=== PATIENT | male | born 1955 | race Caucasian/White ===

== ENCOUNTER → 2020-08-03 | Outpatient (CLI) | payer OTHER ==
--- NOTE | 2020-08-04 00:12 | CT ---
EXAMINATION TYPE: CT ChestAbdPelvis wo con DATE OF EXAM: 08/03/2020 COMPARISON: None available. HISTORY: Ventral hernia w/out obstruction or gangrene. CT DLP: 920.80 mGycm. Automated Exposure Control for Dose Reduction was Utilized. TECHNIQUE: CT scan of the thorax, abdomen and pelvis is performed without IV contrast. FINDINGS: LUNGS: There is mild bibasilar atelectasis. Otherwise the lungs are grossly clear, there is no concer kelly parenchymal mass or nodule identified. There is no pleural effusion or pneumothorax seen. The tracheobronchial tree is patent. MEDIASTINUM: There are no greater than 1 cm hilar or mediastinal lymph nodes. No pericardial effusi on is seen. OTHER: No additional significant abnormality is seen. LIVER/GB: No significant abnormality is appreciated. PANCREAS: No significant abnormality is seen. SPLEEN: 3.6 cm simple appearing cystic lesion within the posterior medial aspect of the spleen. ADRENALS: No significant abnormality is seen. KIDNEYS: No bilateral hydronephrosis or nephrolithiasis. There is a 3 cm mildly hyperdense exophytic left renal cystic lesion in the midpole. Additional bilateral simple appearing renal cysts, one in ea ch kidney measuring up to 2.9 cm are also seen. There is a 4.8 x 3.2 cm oval-shaped, hypoattenuating, circumscribed lesion in the right retroperitone al space, adjacent to the adrenal gland and right kidney upper pole. BOWEL: No significant abnormality is seen. GENITAL ORGANS: No acute abnormality seen. Prostatomegaly noted. LYMPH NODES: Otherwise no enlarged abdominal or pelvic lymph nodes. OSSEOUS STRUCTURES: No significant abnormality is seen. Mild to moderate lumbar spondylosis. OTHER: No significant additional abnormality is seen. IMPRESSION: Indeterminate 4.8 cm right retroperitoneal mass adjacent to the kidneys/adrenal gland. Lymphadenopath y or malignancy cannot be excluded. Consider contrast enhanced MRI or PET/CT for further evaluation. Bilateral renal cysts include a mildly complex left renal cyst. Recommend ultrasound correlation or f ollow-up in 6 months to one year. Also nonspecific benign-appearing splenic cyst. Attention on follow-up. No definite abdominal hernia seen. Prostatomegaly.
== END | disposition home or self-care (01) ==
LOC: RADCTMAIN 16:36
PROVIDERS: ATTEND Family Medicine
DX: R19.09 Other intra-abdominal and pelvic swelling, mass and lump (principal); N28.1 Cyst of kidney, acquired; D73.4 Cyst of spleen; N40.0 Benign prostatic hyperplasia without lower urinary tract symptoms
CPT/HCPCS: 71250; 74176

== ENCOUNTER → 2020-09-02 | Outpatient (CLI) | payer OTHER ==
--- NOTE | 2020-09-02 17:49 | PE ---
Nuclear medicine PET/CT HISTORY: Retroperitoneal, renal mass initial, R 19.00 Patient received 9.1 mCi F-18 FDG intravenously delayed scanning was performed from the skull base to the mid thighs. Localization and attenuation correction CT scan was performed. Correlation to CT chest abdomen pelvis 08/03/2020 Chest and neck: There is no evident lung mass. Coronary artery calcifications are present. Aortic ane urysm is noted incidentally. There are coronary artery calcifications. No intraspinal, axillar, or hi lar adenopathy. No supraclavicular or cervical adenopathy. No suspicious hypermetabolic uptake. ABDOMEN: The previously identified cystic lesion involving the medial aspect of the spleen is no long er seen. There is some increased uptake noted at the inferior margin of the posterior aspect of the s pleen, SUV 3. The retroperitoneal mass posterior to the kidney shows cystic Hounsfield measurement. T here is no hypermetabolic uptake. There is no retroperitoneal adenopathy. No ascites. No evident live r mass. There are cystic foci associated with the kidneys bilaterally. Left adrenal gland is mildly p rominent but shows no suspicious uptake. Inguinal hernias are noted. Prostate is enlarged. Thickening of the bladder wall likely due to chronic outlet obstruction. No pelvic adenopathy. Osseous structures show no suspicious uptake. IMPRESSION: Splenic cyst is no longer seen, hypermetabolic uptake at this level may be due to spontan eous rupture, resorption. The abnormality described in prior report in the retroperitoneum does not c learly arise from the kidney but could possibly represent exophytic cyst, shows water density. There is no hypermetabolic uptake, however. Consider follow-up to assess for stability.
== END | disposition home or self-care (01) ==
LOC: RADPETMAIN 11:08
PROVIDERS: ATTEND Family Medicine
DX: R19.00 Intra-abdominal and pelvic swelling, mass and lump, unspecified site (principal)
CPT/HCPCS: 78815; A9552

== ENCOUNTER → 2020-09-14 | Outpatient (CLI) | payer OTHER ==
--- NOTE | 2020-09-14 10:41 | MR ---
EXAMINATION TYPE: MR abdomen wo/w con DATE OF EXAM: 09/14/2020 COMPARISON: 09/02/2020, 08/03/2020 HISTORY: Intra-abdominal mass and lump CONTRAST: Standard multiplanar, multisequence MRI departmental protocol utilizing 9.0 mL intravenous Gadavist g adolinium contrast. FINDINGS: There remains a area of abnormal signal posterior to the right kidney high and T2 imaging and low on T1 imaging measuring 4.8 x 3.2 cm unchanged in size. No internal enhancement. There are multiple simple appearing cyst within the kidneys bilaterally. Stable thickening of the left adrenal gland and normal morphology of the right adrenal gland. No gallstones. Liver demonstrates multiple subcentimeter simple appearing cysts. There is a tiny 5 mm or less cyst involving the left kidney and there is an area of reduced signal on T2 imaging likely related to calcification in the posterior margin of the spleen and likely benign. Pancreas has a normal appearance. Aorta of normal caliber. Bowel gas pattern nonspecific. Hypertrophic and degenerative change of the s pine. No pathologic adenopathy. IMPRESSION: 1. Stable retroperitoneal mass measuring 4.8 x 3.2 cm on the right unchanged in size relative to the prior exam. No internal enhancement. Findings most likely related to a cyst signal characteristics mo st compatible with fluid. 2. Additional chronic findings including suspected bilateral simple renal cysts and hepatic cysts.
== END | disposition home or self-care (01) ==
LOC: RADMRIMAIN 08:34
PROVIDERS: ATTEND Surgery Plastic and Reconstructive Surgery
DX: R19.09 Other intra-abdominal and pelvic swelling, mass and lump (principal); R19.00 Intra-abdominal and pelvic swelling, mass and lump, unspecified site
CPT/HCPCS: 74183; A9585

== ENCOUNTER → 2020-09-15 | Outpatient (CLI) | payer OTHER ==
--- NOTE | 2020-09-15 10:45 | MR ---
MR pelvis with and without contrast HISTORY: Ventral hernia, mass, pelvic swelling Multiplanar multisequence and postcontrast images obtained through the pelvis following 9 cc Gadavist IV. Correlation MR abdomen 09/14/2020, CT 08/03/2020, PET/CT 09/02/2020 Left groin shows hernia as noted on CT containing fat. T2 bright focus at the lower pole of the right kidney is consistent with cyst as noted on CT, cystic focus also present in exophytic location in th e lateral aspect of the left kidney. The prostate is enlarged. There is an inferior impression on the urinary bladder following contrast administration.. Degenerative disc changes are noted incidentally in visualized spine. No ascites. Bone marrow signal is maintained. Facet arthropathy noted in the lo wer lumbar spine. There is no pelvic adenopathy. IMPRESSION: Prostatic enlargement with extension to cause an inferior impression on the urinary bladd er, consider correlation with PSA. Hernia containing fat noted in the left groin.
== END | disposition home or self-care (01) ==
LOC: RADMRIMAIN 08:35
PROVIDERS: ATTEND Surgery Plastic and Reconstructive Surgery
DX: N40.0 Benign prostatic hyperplasia without lower urinary tract symptoms (principal); K43.9 Ventral hernia without obstruction or gangrene
CPT/HCPCS: 72197; A9585

== ENCOUNTER → 2021-03-15 | Outpatient (CLI) | payer OTHER ==
--- NOTE | 2021-03-16 06:03 | MR ---
EXAMINATION TYPE: MR abdomen wo/w con DATE OF EXAM: 03/15/2021 COMPARISON: HISTORY: Tonsil Ca; Abnormal radiologic finding CONTRAST: Standard multiplanar, multisequence MRI departmental protocol utilizing 9 mL intravenous Gadavist anam olinium contrast. Liver has normal size. Gallbladder appears normal. There are small cysts in the left lobe of the live r that measure 1 cm. The spleen is intact. I see no evidence of pancreatic mass. Pancreatic duct appe ars normal. Stomach is intact. There are multiple bilateral renal cortical cysts. These measure up to 5 cm. There is no hydronephrosis. There is no evidence of retroperitoneal adenopathy. There is no ad renal mass. There is no ascites. There is no sign of a bowel obstruction. There is no evidence of ple ural effusion. The lumbar spine and lower thoracic spine appear intact. Contrast images show normal enhancement of the portal venous system. There is normal enhancement of t he inferior vena cava. There is no pathologic renal enhancement. IMPRESSION: Bilateral multiple renal simple cortical cysts. No evidence of solid renal mass. No renal obstruction . Otherwise negative exam.
== END | disposition home or self-care (01) ==
LOC: RADMRIMAIN 10:31
PROVIDERS: ATTEND Internal Medicine Hematology & Oncology
DX: C09.9 Malignant neoplasm of tonsil, unspecified (principal); N28.1 Cyst of kidney, acquired
CPT/HCPCS: 74183; A9585

== ENCOUNTER → 2022-07-17 | Outpatient (CLI) | payer OTHER ==
--- NOTE | 2022-07-17 12:00 | US ---
EXAMINATION TYPE: US carotid duplex BILAT DATE OF EXAM: 07/17/2022 COMPARISON: NONE CLINICAL HISTORY: Left carotid bruit TECHNIQUE: Carotid duplex ultrasound examination. Indirect Doppler criteria was utilized. FINDINGS: EXAM MEASUREMENTS: RIGHT: Peak Systolic Velocity (PSV) cm/sec ----- Right CCA: 97.9 ----- Right ICA: 94.6 ----- Right ECA: 98.1 ICA/CCA ratio: 1.0 RIGHT: End Diastole cm/sec ----- Right CCA: 33.3 ----- Right ICA: 34.0 ----- Right ECA: 17.6 LEFT: Peak Systolic Velocity (PSV) cm/sec ----- Left CCA: 40.3 ----- Left ICA: -- ----- Left ECA: 204.3 ICA/CCA ratio: -- LEFT: End Diastole cm/sec ----- Left CCA: 11.1 ----- Left ICA: -- ----- Left ECA: 7.5 VERTEBRALS (direction of flow): Right Vertebral: Antegrade Left Vertebral: Antegrade LACING OPERATOR NOTES: Completely occluded left ICA. Decreased velocity in left CCA. Significant stenos is visualized in left ECA. IMPRESSION: Occlusion left ICA. Criteria for Assigning % of Stenosis / Diameter reduction (Estimation based on the indirect measurements of the internal carotid artery velocities (ICA PSV). 1. Normal (no stenosis)=ICA PSV < 125 cm/s: ratio < 2.0: ICA EDV<40 cm/s. 2. Less than 50% stenosis=ICA PSV < 125 cm/s: ratio < 2.0: ICA EDV<40 cm/s. 3. 50 to 69% stenosis=ICA PSV of 125 to 230 cm/s: ration 2.0 ? 4.0: ICA EDV 40-100 cm/s. 4. Greater than 70% stenosis to near occlusion= ICA PSV > 230 cm/s: ratio > 4.0: ICA EDV > 100 cm/s. 5. Near occlusion= ICA PSV velocities may be low or undetectable: variable ratio and ICA EDV. 6. Total occlusion=unable to detect flow.
== END | disposition home or self-care (01) ==
LOC: RADUSWWP 10:31
PROVIDERS: ATTEND Physician Assistant
DX: I65.22 Occlusion and stenosis of left carotid artery (principal)
CPT/HCPCS: 93880

== ENCOUNTER → 2022-08-23 | Outpatient (CLI) | payer OTHER ==
--- NOTE | 2022-08-23 09:40 | CT ---
EXAMINATION TYPE: CT angio neck CT DLP: 401 mGycm, Automated exposure control for dose reduction was used. DATE OF EXAM: 08/23/2022 8:28 AM COMPARISON: Ultrasound carotids 07/17/2022. CLINICAL INDICATION:Male, 66 years old with history of I65.22; TECHNIQUE: Axially acquired helical CT angiogram of the neck was obtained with contrast. Axial images are supplemented with 3D reconstructions which were post-processed at an independent workstation. NA SCET criteria used. Contrast used: 65 cc of [id number] Oral contrast used: None. FINDINGS: CTA NECK: Right Carotid System: The common carotid artery and external carotid artery are patent. The carotid bifurcation demonstrate s no evidence of hemodynamically significant stenosis. The remaining portions of the internal carotid artery demonstrate normal size without significant narrowing. Left Carotid System: The common carotid artery and external carotid artery are patent. The left internal carotid artery is occluded extending from its origin to the intracranial portion. Vertebral arteries are patent without evidence hemodynamically significant stenosis. There is a three-vessel aortic arch. The origins of the great vessels are patent. No evidence of hemo dynamically significant stenosis. Mild centrilobular emphysema changes in the lungs. Mild multilevel disc degeneration changes througho ut the spine. IMPRESSION: 1. Occlusion of the left internal carotid artery extending from its origin to the intracranial porti on. 2. No evidence of dissection of the cervical right internal carotid arteries or vertebral arteries o r any evidence of significant stenosis at the right carotid bifurcation. 3. No evidence of intracranial high-grade stenosis or intracranial aneurysm.
== END | disposition home or self-care (01) ==
LOC: RADCTMAIN 07:31
PROVIDERS: ATTEND Physician Assistant
DX: I65.22 Occlusion and stenosis of left carotid artery (principal)
CPT/HCPCS: 70498; Q9967

== ENCOUNTER → 2023-06-12 | Outpatient (CLI) | payer OTHER ==
--- NOTE | 2023-06-12 11:52 | US ---
EXAMINATION TYPE: US carotid duplex BILAT DATE OF EXAM: 06/12/2023 COMPARISON: 07/17/2022 CLINICAL INDICATION: Male, 67 years old with history of I65.22 OCCLUSION AND STENOSIS OF LEFT CAROTID AUGUSTINE; Patient on cholesterol medication. History of lt ICA occlusion TECHNIQUE: Carotid duplex ultrasound examination. Indirect Doppler criteria was utilized. FINDINGS: EXAM MEASUREMENTS: RIGHT: Peak Systolic Velocity (PSV) cm/sec ----- Right CCA: 104.0 ----- Right ICA: 159.3 ----- Right ECA: 120.5 ICA/CCA ratio: 1.5 RIGHT: End Diastole cm/sec ----- Right CCA: 38.7 ----- Right ICA: 52.7 ----- Right ECA: 31.7 LEFT: Peak Systolic Velocity (PSV) cm/sec ----- Left CCA: 0.0 ----- Left ICA: 0.0 ----- Left ECA: 38.2 ICA/CCA ratio: LEFT: End Diastole cm/sec ----- Left CCA: -- ----- Left ICA: -- ----- Left ECA: 17.5 VERTEBRALS (direction of flow): Right Vertebral: Antegrade Left Vertebral: Antegrade Rhythm: abnormal noted on rt prox CCA HUMAN RESOURCES ASSOCIATE NOTES: Elevated velocities noted rt prox ICA: Soft plaque noted throughout left CCA/ICA/E CA. Minimal flow noted left ECA otherwise completely occluded throughout IMPRESSION: 1. Measurements suggest moderate (50-69%) proximal right ICA stenosis. 2. The left carotid system is occluded throughout. The common carotid artery also appears occluded no w compared to 07/17/2022. Criteria for Assigning % of Stenosis / Diameter reduction (Estimation based on the indirect measurements of the internal carotid artery velocities (ICA PSV). 1. Normal (no stenosis)=ICA PSV < 125 cm/s: ratio < 2.0: ICA EDV<40 cm/s. 2. Less than 50% stenosis=ICA PSV < 125 cm/s: ratio < 2.0: ICA EDV<40 cm/s. 3. 50 to 69% stenosis=ICA PSV of 125 to 230 cm/s: ration 2.0 ? 4.0: ICA EDV 40-100 cm/s. 4. Greater than 70% stenosis to near occlusion= ICA PSV > 230 cm/s: ratio > 4.0: ICA EDV > 100 cm/s. 5. Near occlusion= ICA PSV velocities may be low or undetectable: variable ratio and ICA EDV. 6. Total occlusion=unable to detect flow.
== END | disposition home or self-care (01) ==
LOC: RADUSWWP 09:14
DX: I65.23 Occlusion and stenosis of bilateral carotid arteries (principal); Z79.899 Other long term (current) drug therapy
CPT/HCPCS: 93880

== ENCOUNTER → 2024-07-30 | Outpatient (CLI) | payer OTHER ==
--- NOTE | 2024-07-31 18:26 | US ---
EXAMINATION TYPE: US carotid duplex BILAT DATE OF EXAM: 07/30/2024 COMPARISON: 06/12/2023 CLINICAL INDICATION: Male, 68 years old with history of I65.23Carotid artery stenosis; Additional History: I65.- Occlusion/stenosis of specified precerebral artery, specified laterality TECHNIQUE: Grayscale, color Doppler and spectral Doppler evaluation of the bilateral carotid systems and vertebral arteries. Indirect Doppler criteria was utilized. FINDINGS: EXAM MEASUREMENTS: RIGHT: Peak Systolic Velocity (PSV) cm/sec ----- Right CCA: 98.2 ----- Right ICA: 162.2 ----- Right ECA: 99.1 ICA/CCA ratio: 1.7 RIGHT: End Diastole cm/sec ----- Right CCA: 31.4 ----- Right ICA: 65.6 ----- Right ECA: 14.4 LEFT: Peak Systolic Velocity (PSV) cm/sec ----- Left CCA: occluded ----- Left ICA: occluded ----- Left ECA: occluded ICA/CCA ratio: occluded LEFT: End Diastole cm/sec ----- Left CCA: occluded ----- Left ICA: occluded ----- Left ECA: occluded VERTEBRALS (direction of flow): Right Vertebral: Antegrade Left Vertebral: Antegrade Rhythm: Normal DIRECTOR OF CAPITAL GIVING NOTES: Left CCA,ICA and ECA totally occluded. No flow visualized. Color Doppler imaging shows patency with blood flow throughout the carotid artery. Spectral waveforms are within normal limits. IMPRESSION: Right: 50-69% stenosis of the carotid bifurcation. Left: Left CCA,ICA and ECA totally occluded. No flow visualized. Similar to 06/12/2023 Criteria for Assigning % of Stenosis / Diameter reduction (Estimation based on the indirect measurements of the internal carotid artery velocities (ICA PSV). 1. Normal (no stenosis)=ICA PSV < 125 cm/s: ratio < 2.0: ICA EDV<40 cm/s. 2. Less than 50% stenosis=ICA PSV < 125 cm/s: ratio < 2.0: ICA EDV<40 cm/s. 3. 50 to 69% stenosis=ICA PSV of 125 to 230 cm/s: ration 2.0 ? 4.0: ICA EDV 40-100 cm/s. 4. Greater than 70% stenosis to near occlusion= ICA PSV > 230 cm/s: ratio > 4.0: ICA EDV > 100 cm/s. 5. Near occlusion= ICA PSV velocities may be low or undetectable: variable ratio and ICA EDV. 6. Total occlusion=unable to detect flow. [facility], , 07/31/2024 6:24 PM
== END | disposition home or self-care (01) ==
LOC: RADUSWWP 14:55
PROVIDERS: ATTEND Family Medicine
DX: I65.23 Occlusion and stenosis of bilateral carotid arteries (principal)
CPT/HCPCS: 93880

== ENCOUNTER 2024-08-16 10:26 | Observation (INO) | payer OTHER, MEDICARE ==
[2024-08-16] MEDS: SODIUM CHLORIDE 0.9% 1,000 ML IV STA (11:18)
[2024-08-16] MEDS: hydrALAZINE HCL 20 MG/ML 1 ML VIAL IVP STA ×2 (11:20→12:26)
[2024-08-16] MEDS: ASPIRIN 81 MG PO STA (11:20)
[2024-08-16 11:46] LABS: Partial Thromboplastin Time 23.3 sec (22.0-30.0); Prothrombin Time 10.7 sec (10.0-12.5)
[2024-08-16 11:52] LABS: HCT 47.5 % (39.0-53.0); HGB 16.1 gm/dL (13.0-17.5); MCV 94.3 fL (80.0-100.0); Mean Platelet Volume 7.9; Platelet Count 194 k/uL (150-450); RBC 5.04 m/uL (4.30-5.90); RDW 12.8 % (11.5-15.5); WBC 6.8 k/uL (3.8-10.6)
[2024-08-16 11:55] LABS: ALT 17 U/L (4-49); AST 23 U/L (17-59); African American GFR (CKD) >90 (>60 ml/min/1.73 sqM); Albumin 4.7 g/dL (3.5-5.0); Alkaline Phosphatase 67 U/L (38-126); Anion Gap 7 mmol/L; Blood Urea Nitrogen 17 mg/dL (9-20); Carbon Dioxide 31 mmol/L (22-30); Chloride 99 mmol/L (98-107); Glucose 113 mg/dL (74-99); Magnesium 2.2 mg/dL (1.6-2.3); Non-African American GFR(CKD) 86 (>60 ml/min/1.73 sqM); Potassium 4.8 mmol/L (3.5-5.1); Sodium 137 mmol/L (137-145); Total Bilirubin 1.1 mg/dL (0.2-1.3); Total Protein 7.6 g/dL (6.3-8.2)
[2024-08-16 12:09] LABS: Band Neutrophils % 3 %; Monocytes # (M) 0.48 k/uL (0-1.0); Neutrophils % (M) 62 %; Nucleated Red Blood Cells 0 /100 WBC (0-0); Total Cells Counted 100
[2024-08-16] MEDS ORDERED: hydrALAZINE HCL 20 MG/ML 1 ML VIAL IVP STA (12:14)
[2024-08-16] MEDS ORDERED: amLODIPine 5 MG TAB PO STA (12:14)
--- NOTE | 2024-08-16 12:36 | ED ---
General Adult HPI - General Chief complaint: Dizziness Stated complaint: chest pain dizzy Time Seen by Provider: 08/16/24 10:55 Source: patient, family, RN notes reviewed, old records reviewed Mode of arrival: wheelchair Limitations: no limitations - History of Present Illness Initial comments: Patient is a 68-year-old male who presents emergency department with multiple complaints. Has a history of acute on chronic chest pain/palpitations in addition is having some left arm discomfort. Also feels lightheaded. Has been having his blood pressure watched outpatient by the [facility] however patient took his blood pressure at home today and it was elevated. Denies any history of cardiac stents. Denies any shortness of breath. States he chronically gets some left-sided chest discomfort. Denies any nausea, vomiting, diaphoresis. De nies any abdominal pain. Has a history of carotid issues and is being evaluated outpatient for this. Presents for further evaluation at this time. Denies headache. Is not on blood thinners. Denies any weakness or numbness.Denies current chest pain. States the arm discomfort is almost resolved. States arm discomfort is worse with movements. - Related Data Home Medications Medication Instructions Recorded Confirmed Ascorbic Acid [Vitamin C] 500 mg PO DAILY 08/16/24 08/16/24 Cholecalciferol [Vitamin D3 (125 125 mcg PO DAILY 08/16/24 08/16/24 Mcg = 5000 Iu)] Glucosam/Aakash-Msm1/C/Virgilio/Bosw 1 tab PO DAILY 08/16/24 08/16/24 [Glucosamine-Chondroitin Tablet] Krill/[place]-3/Dha/Epa/Lipids 1 cap PO BID 08/16/24 08/16/24 [Krill Oil 350 mg Softgel] Levothyroxine Sodium [Synthroid] 125 mcg PO DAILY 08/16/24 08/16/24 Methylsulfonylmethane [MSM] 2,000 mg PO DAILY 08/16/24 08/16/24 Pravastatin Sodium [Pravachol] 40 mg PO DAILY 08/16/24 08/16/24 Allergies Allergy/AdvReac Type Severity Reaction Status Date / Time No Known Allergies Allergy Verified 08/16/24 12:54 Review of Systems ROS Statement: Those systems with pertinent positive or pertinent negative responses have been documented in the HPI. Review of Systems: CONST: Denies fever EYES: Denies blurry vision ENT: Denies nasal congestion C/V: Denies Chest pain RESP: Denies shortness of breath GI: Denies abdominal pain : Denies dysuria SKIN: Denies rash. MSK: Denies joint pain. NEURO: Denies headache ROS Other: All systems not noted in ROS Statement are negative. Past Medical History Past Medical History: Cancer, Thyroid Disorder Additional Past Medical History / Comment(s): Hep C with treatment. Rheumatic fever History of Any Multi-Drug Resistant Organisms: None Reported Past Surgical History: Hernia Repair, Tonsillectomy Additional Past Surgical History / Comment(s): thyroidectomy Past Psychological History: No Psychological Hx Reported Smoking Status: Former smoker Past Alcohol Use History: Occasional Past Drug Use History: None Reported General Exam - General Exam Comments Initial Comments: General: Appears in no acute distress. HEAD: Normal with no signs of head trauma. EYES: PERRLA, EOMI, conjunctiva normal, no discharge. ENT: Hearing grossly intact, normal oropharynx. RESPIRATORY: Clear breath sounds bilaterally. No wheezes, rales, or rhonchi. C/V: Regular rate and rhythm. S1 and S2 auscultated, no edema, peripheral pulses 2+ and intact throughout ABD: Abd is soft, nontender, nondistended EXT: Normal range of motion, no obvious deformity. Chest pain is not reproducible on palpation. Left posterior bicep muscle is tender on palpation. This is the area that patient is complaining of pain. SKIN: No rashes or lesions observed on exposed skin. NEURO: Alert and oriented x 4. Cranial nerves II-XII intact. No focal sensory or strength deficits. NIH of 0. Cerebellar function is within normal limits. Limitations: no limitations Course Vital Signs 08/16/24 08/16/24 08/16/24 10:28 11:17 11:33 Temperature 97.9 F Pulse Rate 83 80 78 Respiratory 20 18 18 Rate Blood Pressure 202/109 181/107 186/99 O2 Sat by Pulse 98 96 97 Oximetry 08/16/24 08/16/24 08/16/24 12:00 12:26 14:42 Temperature 98 F Pulse Rate 83 Respiratory 18 Rate Blood Pressure 177/102 189/103 158/93 O2 Sat by Pulse 98 Oximetry Medical Decision Making - Medical Decision Making Was pt. sent in by a medical professional or institution (, PA, [employer] W[employer] OPERATOR, urgent care, hospital, or long term...) When possible be specific @ -No Did you speak to anyone other than the patient for history (EMS, parent, family, police, friend...)? What history was obtained from this source @ -No Did you review nursing and triage notes (agree or disagree)? Why? @ -I reviewed and agree with nursing and triage notes Were old charts reviewed (outside hosp., previous admission, EMS record, old EKG, old radiological studies, urgent care reports/EKG's, long term records)? Report findings @ -Old charts reviewed including ultrasound from July 2024 which does show 50 to 69% obstruction of the right carotid arteries and 100% obstruction of the left carotid arteries. Left carotid artery findings are chronic. Differential Diagnosis (chest pain, altered mental status, abdominal pain women, abdominal pain men, vaginal bleeding, weakness, fever, dyspnea, syncope, headache, dizziness, GI bleed, back pain, seizure, CVA, palpatations, mental health, musculoskeletal)? @ -Differential Chest Pain: Stable Angina, Unstable Angina, STEMI, NSTEMI Aortic Dissection, Pneumothorax, Musculoskeletal, Esophageal Spasm GERD, Cholecystitis, Pancreatitis, Zoster, this is not meant to be an all-inclusive list. EKG interpreted by me (3pts min.). @ -As above X-rays interpreted by me (1pt min.). @ -Chest x-ray reveals no obvious acute cardiopulmonary process. CT interpreted by me (1pt min.). @ -None done U/S interpreted by me (1pt. min.). @ -None done What testing was considered but not performed or refused? (CT, X-rays, U/S, labs)? Why? @ -None What meds were considered but not given or refused? Why? @ -None Did you discuss the management of the patient with other professionals (professionals i.e. DrHilaria, PA, [employer] OPERATOR, lab, RT, psych nurse, social professionals, white sourer, teacher, bank officer, case finishing machine adjuster)? Give summary @ -Discussed management with Dr. Morgan of [facility] who accepted the patient. Also discussed the patient with Dr. Kelly of [facility] who presented bedside to evaluate the patient. Was smoking cessation discussed for >3mins.? @ -No Was critical care preformed (if so, how long)? @ -No Were there social determinants of health that impacted care today? How? (Homelessness, low income, unemployed, alcoholism, drug addiction, transportation, low edu. Level, literacy, decrease access to med. care, halfway, rehab)? @ -No Was there de-escalation of care discussed even if they declined (Discuss DNR or withdrawal of care, Hospice)? DNR status @ -No What co-morbidities impacted this encounter? (DM, HTN, Smoking, COPD, CAD, Cancer, CVA, ARF, Chemo, Hep., AIDS, mental health diagnosis, sleep apnea, morbid obesity)? @ -Carotid artery stenosis bilaterally Was patient admitted / discharged? Hospital course, mention meds given and route, prescriptions, significant lab abnormalities, going to OR and other pertinent info. @ -Based on the patient's presentation and physical exam, presents to the emergency department complaining of chest pain. The way he describes it is that he had chest pain with left arm pain as well as some lightheadedness. However upon further discussion, it does seem like the chest pain is chronic. The arm involvement and lightheadedness is not typical. We will obtain cardiac workup. Patient is hypertensive with systolics over 200. Patient will be administered a dose of IV hydralazine, low doses he is not typically on antihypertensives. He is also given aspirin as well as a 1 L fluid bolus. Patient was in agreement this plan. EKG shows no signs of acute ischemia. Chest x-ray unremarkable. Laboratory studies remarkable for undetectable troponin. On reevaluation, patient states he is feeling improved. Blood pressures remains elevated. Discussed options of discharge versus admission and with the chest pain presentation, we will admit to cardiac observation. This also allows us to come up with a plan to control his hypertension, concerning he does have a history of carotid artery stenosis. Difficult for close follow-up. Patient was in agreement this plan. Patient received a total of 10 mg IV push hydralazine here in the department. Considered initiating Norvasc however we will defer at this time to the admitting team. I discussed the case with Dr. Morgan who accepted the admission. Cardiology consulted. Undiagnosed new problem with uncertain prognosis? @ -No Drug Therapy requiring intensive monitoring for toxicity (Heparin, Nitro, Insulin, Cardizem)? @ -No Were any procedures done? @ -No Diagnosis/symptom? @ -Chest pain, uncontrolled hypertension Acute, or Chronic, or Acute on Chronic? @ -Acute Uncomplicated (without systemic symptoms) or Complicated (systemic symptoms)? @ -Complicated Side effects of treatment? @ -No Exacerbation, Progression, or Severe Exacerbation? @ -No Poses a threat to life or bodily function? How? (Chest pain, [place], [place], pneumonia, PE, COPD, DKA, ARF, appy, cholecystitis, CVA, Diverticulitis, Homicidal, Suicidal, threat to staff... and all critical care pts) @ -Potentially, yes - Lab Data Result diagrams: 08/16/24 11:32 08/16/24 11:32 Lab Results 08/16/24 08/16/24 08/16/24 Range/Units 11:32 11:32 11:32 WBC 6.8 (3.8-10.6) k/uL RBC 5.04 (4.30-5.90) m/uL Hgb 16.1 (13.0-17.5) gm/dL Hct 47.5 (39.0-53.0) % MCV 94.3 (80.0-100.0) fL MCH 32.0 (25.0-35.0) pg MCHC 34.0 (31.0-37.0) g/dL RDW 12.8 (11.5-15.5) % Plt Count 194 (150-450) k/uL MPV 7.9 Neutrophils % (Manual) 62 % Band Neuts % (Manual) 3 % Lymphocytes % (Manual) 25 % Monocytes % (Manual) 7 % Eosinophils % (Manual) 3 % Neutrophils # [employer] OPERATOR Neutrophils # (Manual) 4.40 (1.3-7.7) k/uL Lymphocytes # (Manual) 1.70 (1.0-4.8) k/uL Monocytes # (Manual) 0.48 (0-1.0) k/uL Eosinophils # (Manual) 0.20 (0-0.7) k/uL Nucleated RBCs 0 (0-0) /100 WBC Manual Slide Review Performed PT 10.7 (10.0-12.5) sec INR 1.0 (<1.2) APTT 23.3 (22.0-30.0) sec Sodium 137 (137-145) mmol/L Potassium 4.8 (3.5-5.1) mmol/L Chloride 99 (98-107) mmol/L Carbon Dioxide 31 H (22-30) mmol/L Anion Gap 7 mmol/L BUN 17 (9-20) mg/dL Creatinine 0.90 (0.66-1.25) mg/dL Est GFR (CKD-EPI)AfAm >90 (>60 ml/min/1.73 sqM) Est GFR (CKD-EPI)NonAf 86 (>60 ml/min/1.73 sqM) Glucose 113 H (74-99) mg/dL Calcium 10.0 (8.4-10.2) mg/dL Magnesium 2.2 (1.6-2.3) mg/dL Total Bilirubin 1.1 (0.2-1.3) mg/dL AST 23 (17-59) U/L ALT 17 (4-49) U/L Alkaline Phosphatase 67 (38-126) U/L Troponin I (0.000-0.034) ng/mL Total Protein 7.6 (6.3-8.2) g/dL Albumin 4.7 (3.5-5.0) g/dL 08/16/24 Range/Units 11:32 WBC (3.8-10.6) k/uL RBC (4.30-5.90) m/uL Hgb (13.0-17.5) gm/dL Hct (39.0-53.0) % MCV (80.0-100.0) fL MCH (25.0-35.0) pg MCHC (31.0-37.0) g/dL RDW (11.5-15.5) % Plt Count (150-450) k/uL MPV Neutrophils % (Manual) % Band Neuts % (Manual) % Lymphocytes % (Manual) % Monocytes % (Manual) % Eosinophils % (Manual) % Neutrophils # Neutrophils # (Manual) (1.3-7.7) k/uL Lymphocytes # (Manual) (1.0-4.8) k/uL Monocytes # (Manual) (0-1.0) k/uL Eosinophils # (Manual) (0-0.7) k/uL Nucleated RBCs (0-0) /100 WBC Manual Slide Review PT (10.0-12.5) sec INR (<1.2) APTT (22.0-30.0) sec Sodium (137-145) mmol/L Potassium (3.5-5.1) mmol/L Chloride (98-107) mmol/L Carbon Dioxide (22-30) mmol/L Anion Gap mmol/L BUN (9-20) mg/dL Creatinine (0.66-1.25) mg/dL Est GFR (CKD-EPI)AfAm (>60 ml/min/1.73 sqM) Est GFR (CKD-EPI)NonAf (>60 ml/min/1.73 sqM) Glucose (74-99) mg/dL Calcium (8.4-10.2) mg/dL Magnesium (1.6-2.3) mg/dL Total Bilirubin (0.2-1.3) mg/dL AST (17-59) U/L ALT (4-49) U/L Alkaline Phosphatase (38-126) U/L Troponin I <0.012 (0.000-0.034) ng/mL Total Protein (6.3-8.2) g/dL Albumin (3.5-5.0) g/dL - EKG Data -: EKG Interpreted by Me EKG Comments: 12-lead Electrocardiogram Interpretation Note EKG was reviewed and interpreted by myself. 12-lead ECG performed at 1034 is interpreted by me as revealing normal sinus rhythm at a rate of 77 beats per minute. [place] is normal. MS interval is 157 ms, QRS duration is 73 ms, QTc is 424 ms.. There were no ST or T wave abnormalities to suggest myocardial ischemia or injury. R wave progression across the precordium was satisfactory. By my interpretation this EKG is non-diagnostic for acute ischemia. Disposition Clinical Impression: Chest pain, Uncontrolled hypertension Disposition: ADMITTED IP TO THIS HOSP Condition: Stable Referrals: [facility],Clinic [Primary Care Provider] - 1-2 days Time of Disposition: 13:35
--- NOTE | 2024-08-16 13:18 | XR ---
EXAMINATION TYPE: XR chest 1V DATE OF EXAM: 08/16/2024 12:54 PM COMPARISON: None. CLINICAL INDICATION: Fall, difficulty walking, difficult urination, pain, 68 years old with history o f Chest Pain, TECHNIQUE: XR chest 1V view(s) obtained. FINDINGS: The heart size is normal. The pulmonary vasculature is normal. A few linear opacities are at the left lung base and costophrenic angle likely plate atelectasis. Ba gs otherwise appear clear. No suspicious focal consolidations are evident. IMPRESSION: 1. Suggestion of minimal platelike atelectasis left lower lobe. 2. Acute pulmonary process is not otherwise evident. [facility], , 08/16/2024 1:16 PM
[2024-08-16] MEDS ORDERED: NALOXONE 0.4 MG/ML 1 ML VIAL IV PRN (13:53)
[2024-08-16 15:02] LABS: Appearance,Urine Clear (Clear); Bilirubin,Urine Negative (Negative); Blood,Urine Negative (Negative); Color,Urine Colorless; Glucose,Urine (UA) Negative (Negative); Ketones,Urine Negative (Negative); Leukocyte Esterase,Urine Negative (Negative); Nitrite,Urine Negative (Negative); PH, Urine 6.5 (5.0-8.0); Protein,Urine Negative (Negative); Specific Gravity,Urine 1.006 (1.001-1.035); Urobilinogen,Urine <2.0 mg/dL (<2.0)
[2024-08-16] MEDS ORDERED: ONDANSETRON 4 MG/2 ML VIAL IVP PRN (15:09)
--- NOTE | 2024-08-16 15:48 | P.HPIM ---
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 Patient says that this pain started after he was shoveling snow yesterday. Notably, his pain did not occur during shoveling snow, but rather noticed much later in the day. It occurs even at rest and some positions make him feel better. He does not associate this with exertion. He denies association with food. Denies fevers, chills, nausea, vomiting, palpitat ions, dyspnea, abdominal pain, constipation, diarrhea. This patient's history is significant for chronic total occlusion of his left carotid artery and 70% stenosis of his right carotid artery. He is due to follow-up with Dr. Comfort Irwin for possible operative planning. He denies any neurological symptoms such as weakness of his left upper or lower extremity. At the time my evaluation, patient was afebrile, 158/93, heart rate 83, 98% on room air. CBC is unremarkable. Complete metabolic panel showed CO2 of 31, otherwise unremarkable. Troponin was less than 0.012 then trended to less than 0.012 hours. Urinalysis was negative for protein. EKG shows normal sinus rhythm with normal axis, no evidence of left ventricular hypertrophy, no evidence of ischemia. Chest x-ray shows normal-sized heart, no evidence of volume overload. Mediastinum is mildly widened. Case was discussed with the emergency room physician as well as vascular surgery on consult. Patient was admitted for observation for chest pain, hypertensive urgency. All Systems reviewed and pertinent positives and negatives noted in HPI, all other symptoms are negative Gen: In NAD, non-toxic HEENT: normocephalic, atraumatic, hearing acuity is intant, mucous membranes moist, mild bruits present in the right carotid artery CVS: perfusing all extremities well, no pitting edema, regular rate rhythm with no evident murmurs, Respiratory: symmetric chest expansion, no accessory muscle use, clear to auscultation bilaterally GI: soft, NTTP, ND, : no suprapubic tenderness, no CVA tenderness MSK/Derm: no rashes, cyanosis, chest pain and left arm numbness is reproducible to palpation of the lateral flank Neuro: CN II-XII intact, no motor weakness, Psych: cooperative, euthymic mood, judgment and insight is intact Imaging as above Assessment/plan: Chest pain, musculoskeletal -Admit patient observation with telemetry -Cardiology was consulted -Trend troponins -Lipid panel, A1c, TSH -Aspirin 81 mg daily -Continue statin -Hold antihypertensives as below -Echocardiogram is pending Carotid artery stenosis, total occlusion of the left, 70 percent on the right Hypertensive urgency -Discussed with vascular surgery, maintain SBP between 140-160 -Patient is at target at this time without any antihypertensives, we will not initiate at this time -CT angiography of the head and neck -Vascular surgery consult is pending -Agree with aspirin -Neurological checks Hyperlipidemia Diabetes type 2 -Home medications reviewed and reconciled -Initiate Jardiance versus metformin on discharge Patient is full code Past Medical History Past Medical History: Cancer, Thyroid Disorder Additional Past Medical History / Comment(s): Hep C with treatment. Rheumatic fever History of Any Multi-Drug Resistant Organisms: None Reported Past Surgical History: Hernia Repair, Tonsillectomy Additional Past Surgical History / Comment(s): thyroidectomy Past Psychological History: No Psychological Hx Reported Smoking Status: Former smoker Past Alcohol Use History: Occasional Past Drug Use History: None Reported Medications and Allergies Home Medications Medication Instructions Recorded Confirmed Type Ascorbic Acid [Vitamin C] 500 mg PO DAILY 08/16/24 08/16/24 History Cholecalciferol [Vitamin D3 (125 125 mcg PO DAILY 08/16/24 08/16/24 History Mcg = 5000 Iu)] Glucosam/Aakash-Msm1/C/Virgilio/Bosw 1 tab PO DAILY 08/16/24 08/16/24 History [Glucosamine-Chondroitin Tablet] Krill/[place]-3/Dha/Epa/Lipids 1 cap PO BID 08/16/24 08/16/24 History [Krill Oil 350 mg Softgel] Levothyroxine Sodium [Synthroid] 125 mcg PO DAILY 08/16/24 08/16/24 History Methylsulfonylmethane [MSM] 2,000 mg PO DAILY 08/16/24 08/16/24 History Pravastatin Sodium [Pravachol] 40 mg PO DAILY 08/16/24 08/16/24 History Allergies Allergy/AdvReac Type Severity Reaction Status Date / Time No Known Allergies Allergy Verified 08/16/24 12:54 Physical Exam Osteopathic Statement: *. No significant issues noted on an osteopathic structural exam other than those noted in the History and Physical/Consult. Vitals: Vital Signs Temp Pulse Resp BP Pulse Ox 08/16/24 14:42 98 F 83 18 158/93 98 08/16/24 12:26 189/103 08/16/24 12:00 177/102 08/16/24 11:33 78 18 186/99 97 08/16/24 11:17 80 18 181/107 96 08/16/24 10:28 97.9 F 83 20 202/109 98 Intake and Output 08/16/24 08/16/24 08/16/24 06:59 14:59 22:59 Other: Weight 81.647 kg Results CBC & Chem 7: 08/16/24 11:32 08/16/24 11:32 Labs: Abnormal Lab Results - Last 24 Hours (Table) 08/16/24 Range/Units 11:32 Carbon Dioxide 31 H (22-30) mmol/L Glucose 113 H (74-99) mg/dL
--- NOTE | 2024-08-16 17:00 | CT ---
EXAMINATION TYPE: CT head without contrast. CT angio head neck DATE OF EXAM: 08/16/2024 4:15 PM COMPARISON: 08/23/2019. CLINICAL INDICATION: Male, 68 years old with history of carotid stenosis; PHH, hx of carotid stenosis TECHNIQUE: Axially acquired helical CT angiogram of the head and neck was obtained with contrast. Axi al images are supplemented with 3D reconstructions and MIP images which were post-processed at an in dependent workstation. NASCET criteria used. CT head without contrast. Contrast used:65ml mL of Isovue 370 without and with IV Contrast, Oral contrast used: None. CT DLP: 1737.1 mGycm, Automated exposure control for dose reduction was used. FINDINGS: CT head without contrast: Brain: Extra-axial spaces: No abnormal extra-axial fluid collections. Ventricular system: Within normal limits Cerebral parenchyma: No acute intraparenchymal hemorrhage or mass effect. The cordova-white junction is well differentiated. Cerebellum: Unremarkable. Mass effect: No evidence of midline shift. Intracranial vasculature: Atherosclerotic calcifications of the intracranial vessels. Soft tissues: Normal. Calvarium/osseous structures: No depressed skull fracture. Deformity to the nasal bone. Paranasal sinuses and mastoid air cells: Mild scattered paranasal sinus disease. Visualized orbits: Orbital contents are intact. CTA HEAD: No evidence of acute intracranial hemorrhage, mass effect, or midline shift. The ventricles, sulci, a nd cisterns are unremarkable. Vertebral arteries: The vertebral arteries are patent. Vertebral artery dominance: Codominant Basilar artery: The basilar artery is intact. The basilar artery bifurcation is normal. Internal Carotid arteries: Reconstitution of the occlusion in the intracranial portion/cavernous port ion on the left. On the right No evidence for occlusion. The cervical, petrous, cavernous and supracl inoid segments are normal. GIBRAN: Patent with no evidence of aneurysm. ACOM: Present without evidence of aneurysm. MCA: Patent with no evidence of aneurysm. COMPENSATION INTERN: Patent with no evidence of aneurysm. PCOM: Hypoplastic bilaterally. Dural sinuses: Patent. CTA NECK: Right Carotid System: The common carotid artery and external carotid artery are patent. The carotid bifurcation demonstrate s no evidence of hemodynamically significant stenosis. The remaining portions of the internal carotid artery demonstrate normal size without significant narrowing. Left Carotid System: Occlusion of the left common carotid artery just past its bifurcation extending into the [place] with reconstitution. Previously the occlusion started closer to the carotid bifurcation now its near its origin off the aorta. Vertebral arteries are patent without evidence hemodynamically significant stenosis. There is a three-vessel aortic arch. The origins of the great vessels are patent. No evidence of hemo dynamically significant stenosis. Upper thorax: IMPRESSION: 1. Occlusion of the left common carotid artery just past its bifurcation extending near the [place] with reconstitution. Previously the occlusion started closer to the carotid bifurcation now its near its origin. 2. No any evidence of significant stenosis at the right carotid system. 3. No evidence of intracranial high-grade stenosis or intracranial aneurysm. 4. No acute intracranial process. 5. Deformity to the nasal bones correlate for fracture. [facility], , 08/16/2024 4:57 PM
--- NOTE | 2024-08-16 18:45 | US ---
EXAMINATION TYPE: US carotid duplex BILAT DATE OF EXAM: 08/16/2024 COMPARISON: CTa 2024, US 2023 and 2022 CLINICAL INDICATION: Male, 68 years old with history of right carotid stenosis characterization; Righ t carotid stenosis characterization recheck Additional History: .... TECHNIQUE: Grayscale, color Doppler and spectral Doppler evaluation of the bilateral carotid systems and vertebral arteries. Indirect Doppler criteria was utilized. 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 Plaque noted throughout lef t CCA, bulb, and bifurcation. No flow visualized in left CCA or left ICA. Possible minimal flow in le ft ECA. IMPRESSION: 1. No flow evident within the left common or left internal carotid artery. There may be flow within t he left external carotid artery, possibly from collateral flow. 2. Atheromatous plaquing right internal carotid artery with moderate narrowing between 50 and 69% Criteria for Assigning % of Stenosis / Diameter reduction (Estimation based on the indirect measurements of the internal carotid artery velocities (ICA PSV). 1. Normal (no stenosis)=ICA PSV < 125 cm/s: ratio < 2.0: ICA EDV<40 cm/s. 2. Less than 50% stenosis=ICA PSV < 125 cm/s: ratio < 2.0: ICA EDV<40 cm/s. 3. 50 to 69% stenosis=ICA PSV of 125 to 230 cm/s: ration 2.0 ? 4.0: ICA EDV 40-100 cm/s. 4. Greater than 70% stenosis to near occlusion= ICA PSV > 230 cm/s: ratio > 4.0: ICA EDV > 100 cm/s. 5. Near occlusion= ICA PSV velocities may be low or undetectable: variable ratio and ICA EDV. 6. Total occlusion=unable to detect flow. [facility], , 08/16/2024 6:42 PM
[2024-08-16] MEDS: LIPIDS PO SCH (21:42)
[2024-08-16] MEDS: [UNRECOGNIZED DRUG - OTHER] PO SCH (21:42)
[2024-08-16] MEDS: KRILL PO SCH (21:42)
[2024-08-16] MEDS: EPA PO SCH (21:42)
[2024-08-16] MEDS: OMEGA PO SCH (21:42)
[2024-08-16] MEDS: DHA PO SCH (21:42)
[2024-08-16] MEDS: ACETAMINOPHEN TAB 325 MG TAB PO PRN (21:47)
[2024-08-17] MEDS: LEVOTHYROXINE 125 MCG TAB PO SCH (05:53)
[2024-08-17 08:41] VITALS: BP 148/81; PULSE 67; RESP 16; TEMP 97.8
--- NOTE | 2024-08-17 08:43 | US ---
EXAMINATION TYPE: US renal artery duplex complete DATE OF EXAM: 08/17/2024 COMPARISON: NONE CLINICAL INDICATION: Male, 68 years old with history of HTN urgency; High bp issues on and off for 4 years, patient has never been on bp meds TECHNIQUE: Grayscale, color Doppler and spectral Doppler imaging of the bilateral renal arteries and kidneys. 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 IMPRESSION: No evidence for renal artery stenosis bilaterally. [facility], , 08/17/2024 8:41 AM
[2024-08-17 09:04] LABS: ALT 11 U/L (10-49); AST 16 U/L (14-35); Albumin 3.8 g/dL (3.8-4.9); Albumin/Globulin Ratio 1.81 Ratio (1.60-3.17); Alkaline Phosphatase 54 U/L (41-126); Blood Urea Nitrogen 14.4 mg/dL (9.0-27.0); Calcium 9.1 mg/dL (8.7-10.3); Carbon Dioxide 27.3 mmol/L (21.6-31.8); Chloride 104 mmol/L (96-109); Globulin 2.1 g/dL (1.6-3.3); Glucose 117 mg/dL (70-110); LDL Cholesterol,Calculated 90.9 mg/dL (0.0-131.0); Magnesium 2.1 mg/dL (1.5-2.4); Potassium 4.3 mmol/L (3.5-5.5); Sodium 140 mmol/L (135-145); Total Bilirubin 0.9 mg/dL (0.3-1.2); Total Protein 5.9 g/dL (6.2-8.2); VLDL Calculation 16.84 mg/dL (5.00-40.00)
[2024-08-17] MEDS: NON FORMULARY DRUG (Glucosam/Chon-Msm1/C/Mang/Bosw [Glucosamine-Chondroitin Tablet] 1 EACH PO SCH (09:22)
[2024-08-17 09:35] LABS: Basophils # (A) 0.05 X 10*3/uL (0.00-0.10); Basophils % (A) 0.8 %; Eosinophils # (A) 0.22 X 10*3/uL (0.04-0.35); Eosinophils % (A) 3.3 %; HCT 43.7 % (39.6-50.0); HGB 14.7 g/dL (13.0-17.0); Lymphocytes # (A) 1.47 X 10*3/uL (0.90-5.00); Lymphocytes % (A) 22.2 %; MCHC 33.6 g/dL (32.0-37.0); MCV 92.2 FL (80.0-97.0); Mean Platelet Volume 11.1 FL (9.5-12.2); Monocytes # (A) 0.66 X 10*3/uL (0.20-1.00); NRBC Per 100 WBC 0 X 10*3/uL (0.00-0.01); Neutrophils # (A) 4.15 X 10*3/uL (1.80-7.70); Neutrophils % (A) 62.6 %; Platelet Count 198 X 10*3/uL (140-440); RBC 4.74 X 10*6/uL (4.40-5.60); WBC 6.62 X 10*3/uL (4.50-10.00)
[2024-08-17] MEDS: CLOPIDOGREL 75 MG TAB PO SCH (09:58)
[2024-08-17] MEDS: ASPIRIN 81 MG PO SCH (09:58)
[2024-08-17] MEDS: ASCORBIC ACID 500 MG TAB PO SCH (09:58)
[2024-08-17] MEDS: CHOLECALCIFEROL 125 MCG (5000 IU) TABLET PO SCH (09:58)
--- NOTE | 2024-08-17 11:56 | P.CRDCN ---
History of Present Illness History of present illness: HISTORY OF PRESENT ILLNESS: This is a 68-year-old male with a past medical history significant for rheumatic fever, hypertension, hyperlipidemia, former nicotine dependence, and former al cohol abuse. Patient follows with a PCP in [place] at the [place]. He denies following with a cone runner. We have been asked to see the patient in consultation for chest pain and uncontrolled hypertension. Patient examined at the bedside. Patient states on Saturday he was shoveling snow when he began to have pain in his left arm. He states that he took some aspirin and the pain went away. He states yesterday morning he began to have discomfort again so he took a few extra baby aspirin but this time the pain did not go away. He does report that he felt short of breath and lightheaded while shoveling. He reports that he has had chronic chest pain his whole life. Patient is a former cigaret te smoker and quit smoking 38 years ago. He has a history of alcohol abuse but states he now only drinks about once a week. He does report a known history of carotid stenosis and states he was supposed to establish outpatient with Dr. Irwin. Patient was found to have extremely elevated blood pressures upon admission with a reading of 202/109. The patient states that he never had a history of hypertension but the last few years he was told that his blood pressure has been high. He is not prescribed any antihypertensive medications on an outpatient basis. DIAGNOSTICS: - EKG reveals sinus mechanism with no signs of acute ischemia. - Chest xray suggestion of minimal platelike atelectasis left lower lung. Acute pulmonary process is not otherwise evident. - Carotid Doppler: No flow evident in left common or left internal carotid artery. Right internal carotid artery with moderate narrowing between 50 and 69%. - Laboratory data: WBC 6.6 2. Hemoglobin 14.7. Platelet count 198. Sodium 140. Potassium 4.3. BUN 14. Creatinine 0.9. Troponin negative x 3. TSH 3.400. - Current home cardiac medications include Pravachol 40 mg daily. - No previous echocardiogram, stress test, or cardiac catheterization available in EMR for review REVIEW OF SYSTEMS: At the time of my exam: CONSTITUTIONAL: Denies fever or chills. HEENT: Denies blurred vision, vision changes, or eye pain. Denies hemoptysis CARDIOVASCULAR: Denies chest pain. Denies orthopnea. Denies PND. Denies palpitations RESPIRATORY: Denies shortness of breath. GASTROINTESTINAL: Denies abdominal pain. Denies nausea or vomiting. HEMATOLOGIC: Denies bleeding disorders. GENITOURINARY: Denies any blood in urine. SKIN: Denies pruitis. Denies rash. PHYSICAL EXAM: VITAL SIGNS: Reviewed. GENERAL: Well-developed in no acute distress. HEENT: Head is normocephalic. Pupils are equal, round. Sclerae anicteric. Mucous membranes of the mouth are moist. Neck supple. No JVD or thyromegaly. LUNGS: Respirations even and unlabored. Lungs essentially clear to auscultation bilaterally. HEART: Regular rate and rhythm. S1 and S2 heard. ABDOMEN: Soft. Nondistended. Nontender. EXTREMITIES: Normal range of motion. No clubbing or cyanosis. Peripheral pulses intact. No lower extremity edema NEUROLOGIC: Awake and alert. Oriented x 3. ASSESSMENT: Hypertensive emergency, improved Left arm discomfort, troponin negative x 3 Occlusion of left carotid artery Intermediate disease of right RCA 50 to 69% Hyperlipidemia Former nicotine dependence Former alcohol abuse PLAN: An acute coronary event has been ruled out Add losartan 50 mg daily for optimal blood pressure control Discontinue Pravachol. Start patient on atorvastatin 40 mg at night Vascular surgery has been consulted for evaluation. Await further input and recommendations Obtain 2D echo to assess cardiac structure and function Patient to undergo Cardiolite stress testing today Further recommendations pending patient course Nurse practitioner note has been reviewed by physician. Signing provider agrees with the documented findings, assessment, and plan of care documented by SIGN OUT CLERK as a scribe. Past Medical History Past Medical History: Cancer, Hyperlipidemia, Hypertension, Thyroid Disorder Additional Past Medical History / Comment(s): Hep C with treatment. Rheumatic fever History of Any Multi-Drug Resistant Organisms: None Reported Past Surgical History: Hernia Repair, Tonsillectomy Additional Past Surgical History / Comment(s): thyroidectomy Past Psychological History: No Psychological Hx Reported Smoking Status: Former smoker Past Alcohol Use History: Occasional Past Drug Use History: None Reported Medications and Allergies Home Medications Medication Instructions Recorded Confirmed Type Ascorbic Acid [Vitamin C] 500 mg PO DAILY 08/16/24 08/16/24 History Cholecalciferol [Vitamin D3 (125 125 mcg PO DAILY 08/16/24 08/16/24 History Mcg = 5000 Iu)] Glucosam/Aakash-Msm1/C/Virgilio/Bosw 1 tab PO DAILY 08/16/24 08/16/24 History [Glucosamine-Chondroitin Tablet] Krill/Newcomb-3/Dha/Epa/Lipids 1 cap PO BID 08/16/24 08/16/24 History [Krill Oil 350 mg Softgel] Levothyroxine Sodium [Synthroid] 125 mcg PO DAILY 08/16/24 08/16/24 History Methylsulfonylmethane [MSM] 2,000 mg PO DAILY 08/16/24 08/16/24 History Pravastatin Sodium [Pravachol] 40 mg PO DAILY 08/16/24 08/16/24 History Allergies Allergy/AdvReac Type Severity Reaction Status Date / Time No Known Allergies Allergy Verified 08/16/24 12:54 Physical Exam Vitals: Vital Signs Temp Pulse Pulse Resp BP BP Pulse Ox 08/17/24 08:38 97 08/17/24 07:00 97.8 F 67 16 148/81 98 08/17/24 01:59 97.6 F 89 17 146/91 97 08/16/24 20:00 80 17 08/16/24 17:20 98 F 80 17 175/90 98 08/16/24 16:35 98 F 89 18 141/89 96 08/16/24 16:00 98.1 F 87 19 173/110 08/16/24 15:00 91 3 L 171/93 98 08/16/24 14:42 98 F 83 18 158/93 98 08/16/24 14:00 97 7 L 160/97 08/16/24 12:26 189/103 08/16/24 12:00 177/102 08/16/24 11:33 78 18 186/99 97 08/16/24 11:17 80 18 181/107 96 08/16/24 10:28 97.9 F 83 20 202/109 98 Intake and Output 08/16/24 08/17/24 08/17/24 22:59 06:59 14:59 Other: # Voids 2 2 Weight 81.647 kg Results 08/17/24 05:25 08/17/24 05:25 Cardiac Enzymes 08/16/24 08/16/24 08/16/24 Range/Units 11:32 11:32 14:25 AST 23 (17-59) U/L Troponin I <0.012 <0.012 (0.000-0.034) ng/mL 08/16/24 08/17/24 Range/Units 17:45 05:25 AST 16 (17-59) U/L Troponin I <0.012 (0.000-0.034) ng/mL Coagulation 08/16/24 Range/Units 11:32 PT 10.7 (10.0-12.5) sec APTT 23.3 (22.0-30.0) sec Lipids 08/17/24 Range/Units 05:25 Triglycerides 84.20 (0.00-149.00) mg/dL Cholesterol 175.00 (0.00-200.00) mg/dL HDL Cholesterol 67.30 H (40.00-60.00) mg/dL Cholesterol/HDL Ratio 2.60 Ratio CBC 08/16/24 Range/Units 11:32 WBC 6.8 (3.8-10.6) k/uL RBC 5.04 (4.30-5.90) m/uL Hgb 16.1 (13.0-17.5) gm/dL Hct 47.5 (39.0-53.0) % Plt Count 194 (150-450) k/uL Comprehensive Metabolic Panel 08/16/24 08/17/24 Range/Units 11:32 05:25 Sodium 137 140 (137-145) mmol/L Potassium 4.8 4.3 (3.5-5.1) mmol/L Chloride 99 104 (98-107) mmol/L Carbon Dioxide 31 H 27.3 (22-30) mmol/L BUN 17 14.4 (9-20) mg/dL Creatinine 0.90 0.9 (0.66-1.25) mg/dL Glucose 113 H 117 H (74-99) mg/dL Calcium 10.0 9.1 (8.4-10.2) mg/dL AST 23 16 (17-59) U/L ALT 17 11 (4-49) U/L Alkaline Phosphatase 67 54 (38-126) U/L Total Protein 7.6 5.9 L (6.3-8.2) g/dL Albumin 4.7 3.8 (3.5-5.0) g/dL Current Medications Generic Name Dose Route Start Last Admin Trade Name Freq PRN Reason Stop Dose Admin Acetaminophen 650 mg 08/16/24 15:09 08/16/24 21:47 Acetaminophen Tab 325 Mg Tab PO 650 mg Q6HR PRN Administration Mild Pain or Fever > 100.5 Ascorbic Acid 500 mg 08/17/24 09:00 Ascorbic Acid 500 Mg Tab PO DAILY [facility] Aspirin 81 mg 08/17/24 09:00 Aspirin 81 Mg PO DAILY [facility] Cholecalciferol 125 mcg 08/17/24 09:00 Cholecalciferol 125 Mcg (5000 Iu) Tablet PO DAILY [facility] Clopidogrel Bisulfate 75 mg 08/17/24 09:00 Clopidogrel 75 Mg Tab PO DAILY [facility] Levothyroxine Sodium 125 mcg 08/17/24 06:30 08/17/24 05:53 Levothyroxine 125 Mcg Tab PO 125 mcg 0630 SVETLANA Administration Naloxone HCl 0.2 mg 08/16/24 13:53 Naloxone 0.4 Mg/Ml 1 Ml Vial IV Q2M PRN Opioid Reversal Non-Formulary Medication 1 tab 08/17/24 09:00 Glucosam/Aakash-Msm1/C/Virgilio/Bosw [Glucosamine-Chondroitin Tablet] PO DAILY [facility] Non-Formulary Medication 1 cap 08/16/24 21:00 08/16/24 21:42 Krill/Newcomb-3/Dha/Epa/Lipids [Krill Oil 350 Mg Softgel] PO Not Given BID [facility] Ondansetron HCl 4 mg 08/16/24 15:09 Ondansetron 4 Mg/2 Ml Vial IVP Q8HR PRN Nausea And Vomiting Pravastatin Sodium 40 mg 08/17/24 09:00 Pravastatin Sodium 40 Mg Tab PO DAILY [facility] Intake and Output 08/16/24 08/17/24 08/17/24 22:59 06:59 14:59 Other: # Voids 2 2 Weight 81.647 kg 08/16/24 11:32 08/17/24 05:25
--- NOTE | 2024-08-17 12:34 | P.GSCN ---
History of Present Illness Consult date: 08/17/24 Reason for Consult: Carotid stenosis 70% right, 100% left Requesting physician: Karen Kelly History of present illness: This is a pleasant 68-year-old male that presented to the emergency department with complaints of left arm discomfort, dizziness and chest pain/pressure. He came into the emergency department for further evaluation. Past medical history includes coronary artery disease, hypertension, hepatitis C with treatment, thyroid disorder and former smoker. He follows with the [facility] in [place] and he has been being monitored for elevated blood pressures as well as carotid stenosis. He has known history of left ICA occlusion since 2022. He is supposed to get scheduled with Dr. Irwin for monitor of his right ICA. States that he had a recent carotid ultrasound done outpatient and sacrum was supposed to get the results however he has not heard anything back. He had a CTA of the head and neck as well as a ultrasound of the carotid arteries as part of his workup and evaluation for possible TIA. Vascular surgery was consulted for left carotid occlusion as well as reported right ICA stenosis of 50 to 69% on carotid duplex. Patient denies any focal deficits at this time. States he still has some arm pain in his upper arm. Feels as though somebody had punched him. Denies any shortness of breath or chest pain at this time. Review of Systems A 14 point review systems was completed all pertinent positives and negatives as stated in the HPI. Past Medical History Past Medical History: Cancer, Hyperlipidemia, Hypertension, Thyroid Disorder Additional Past Medical History / Comment(s): Hep C with treatment. Rheumatic fever History of Any Multi-Drug Resistant Organisms: None Reported Past Surgical History: Hernia Repair, Tonsillectomy Additional Past Surgical History / Comment(s): thyroidectomy Past Psychological History: No Psychological Hx Reported Smoking Status: Former smoker Past Alcohol Use History: Occasional Past Drug Use History: None Reported Medications and Allergies Home Medications Medication Instructions Recorded Confirmed Type Ascorbic Acid [Vitamin C] 500 mg PO DAILY 08/16/24 08/16/24 History Cholecalciferol [Vitamin D3 (125 125 mcg PO DAILY 08/16/24 08/16/24 History Mcg = 5000 Iu)] Glucosam/Aakash-Msm1/C/Virgilio/Bosw 1 tab PO DAILY 08/16/24 08/16/24 History [Glucosamine-Chondroitin Tablet] Krill/[place]-3/Dha/Epa/Lipids 1 cap PO BID 08/16/24 08/16/24 History [Krill Oil 350 mg Softgel] Levothyroxine Sodium [Synthroid] 125 mcg PO DAILY 08/16/24 08/16/24 History Methylsulfonylmethane [MSM] 2,000 mg PO DAILY 08/16/24 08/16/24 History Pravastatin Sodium [Pravachol] 40 mg PO DAILY 08/16/24 08/16/24 History Allergies Allergy/AdvReac Type Severity Reaction Status Date / Time No Known Allergies Allergy Verified 08/16/24 12:54 Surgical - Exam Vital Signs Temp Pulse Resp BP Pulse Ox 97.9 F 83 20 202/109 98 08/16/24 10:28 08/16/24 10:28 08/16/24 10:28 08/16/24 10:08/16/24 10:28 General appearance: The patient is alert, oriented, appears in no acute distress. HET: Head is normocephalic and atraumatic. Pupils are equal and reactive. Neck: Supple. No carotid bruit appreciated. Heart: Regular. Lungs: Equal expansion, normal respiratory effort. Abdomen: Soft, nontender, nondistended. Extremities: Normal skin color and turgor. Palpable radial pulses bilaterally. Neurological: No focal deficits. Strength and sensation are grossly intact. Results - Labs 08/17/24 05:25 08/17/24 05:25 Abnormal Lab Results - Last 24 Hours (Table) 08/16/24 08/17/24 Range/Units 11:32 05:25 Carbon Dioxide 31 H (22-30) mmol/L Glucose 113 H 117 H (74-99) mg/dL Total Protein 5.9 L (6.2-8.2) g/dL HDL Cholesterol 67.30 H (40.00-60.00) mg/dL Diabetes panel 08/16/24 08/16/24 08/17/24 Range/Units 11:32 17:45 05:25 Sodium 137 140 (137-145) mmol/L Potassium 4.8 4.3 (3.5-5.1) mmol/L Chloride 99 104 (98-107) mmol/L Carbon Dioxide 31 H 27.3 (22-30) mmol/L BUN 17 14.4 (9-20) mg/dL Creatinine 0.90 0.9 (0.66-1.25) mg/dL Glucose 113 H 117 H (74-99) mg/dL Hemoglobin A1c 5.6 (<=6.0) % Calcium 10.0 9.1 (8.4-10.2) mg/dL AST 23 16 (17-59) U/L ALT 17 11 (4-49) U/L Alkaline Phosphatase 67 54 (38-126) U/L Total Protein 7.6 5.9 L (6.3-8.2) g/dL Albumin 4.7 3.8 (3.5-5.0) g/dL Triglycerides 84.20 (0.00-149.00) mg/dL HDL Cholesterol 67.30 H (40.00-60.00) mg/dL Thyroid panel 08/16/24 Range/Units 17:45 TSH 3.400 (0.465-4.680) mIU/L Calcium panel 08/16/24 08/17/24 Range/Units 11:32 05:25 Calcium 10.0 9.1 (8.4-10.2) mg/dL Albumin 4.7 3.8 (3.5-5.0) g/dL Pituitary panel 08/16/24 08/16/24 08/17/24 Range/Units 11:32 17:45 05:25 Sodium 137 140 (137-145) mmol/L Potassium 4.8 4.3 (3.5-5.1) mmol/L Chloride 99 104 (98-107) mmol/L Carbon Dioxide 31 H 27.3 (22-30) mmol/L BUN 17 14.4 (9-20) mg/dL Creatinine 0.90 0.9 (0.66-1.25) mg/dL Glucose 113 H 117 H (74-99) mg/dL Calcium 10.0 9.1 (8.4-10.2) mg/dL TSH 3.400 (0.465-4.680) mIU/L Adrenal panel 08/16/24 08/17/24 Range/Units 11:32 05:25 Sodium 137 140 (137-145) mmol/L Potassium 4.8 4.3 (3.5-5.1) mmol/L Chloride 99 104 (98-107) mmol/L Carbon Dioxide 31 H 27.3 (22-30) mmol/L BUN 17 14.4 (9-20) mg/dL Creatinine 0.90 0.9 (0.66-1.25) mg/dL Glucose 113 H 117 H (74-99) mg/dL Calcium 10.0 9.1 (8.4-10.2) mg/dL Total Bilirubin 1.1 0.9 (0.2-1.3) mg/dL AST 23 16 (17-59) U/L ALT 17 11 (4-49) U/L Alkaline Phosphatase 67 54 (38-126) U/L Total Protein 7.6 5.9 L (6.3-8.2) g/dL Albumin 4.7 3.8 (3.5-5.0) g/dL - Imaging Comments: CT angiogram head and neck reports occlusion of the left common carotid artery just past his bifurcation extending near the benton of Husain with reconstitution. Previously occlusion started closer to the carotid bifurcation now its near its origin. No evidence of significant stenosis at the right carotid system. No evidence of intracranial high-grade stenosis or intracranial aneurysm. No acute intracranial process. Deformity to the nasal bones correlate for fracture. Carotid duplex reports no flow evident within the left common or left internal carotid artery. May be flow within the left external carotid artery, possibly from collateral flow. R thrombus plaquing right internal carotid artery with moderate narrowing between 50 and 69%. Renal artery ultrasound reports no evidence for renal artery stenosis bilaterally. Assessment and Plan Assessment: 1. Known left CCA/ICA occlusion 2. No significant right ICA stenosis, using updated criteria for ICA stenosis patient's findings more consistent with around 50% or less stenosis of the right internal carotid artery 3. Hypertensive emergency, improved 4. Left arm pain, post shoveling likely musculoskeletal 5. History of tobacco use Plan: There is no indication for any vascular surgical intervention. Continue with optimal blood pressure management. No further blood pressure parameters at this time. Patient to establish with Dr. Irwin as planned. Can follow-up in 2 to 4 weeks. Rest of medical management per primary medical team, continue workup from cardiology. Thank you for this consultation, outpatient follow-up recommended with vascular surgery.
[2024-08-17] MEDS: PRAVASTATIN SODIUM 40 MG TAB PO SCH (12:43)
--- NOTE | 2024-08-17 13:12 | CA ---
Transthoracic Echo Report Name: Italo Rodriguez Age: 68 Gender: M : 1955 Exam Date: 08/17/2024 10:26 Exam Location: [facility] Ht (in): 68 Wt (lb): 180 Ordering Physician: Karen Kelly MD Attending/Referring Phys: Piece Hand Tricia Velazquez RDCS Procedure CPT: Indications: htn urgency Cardiac Hx: Technical Quality: Good Contrast 1: Total Dose (mL): Contrast 2: Total Dose (mL): MEASUREMENTS (Male / Female) Normal Values 2D ECHO LV Diastolic Diameter PLAX 5.5 cm 4.2 - 5.9 / 3.9 - 5.3 cm LV Systolic Diameter PLAX 3.7 cm IVS Diastolic Thickness 0.7 cm 0.6 - 1.0 / 0.6 - 0.9 cm LVPW Diastolic Thickness 0.9 cm 0.6 - 1.0 / 0.6 - 0.9 cm LV Relative Wall Thickness 0.3 LVOT Diameter 2.4 cm LV Diastolic Volume MOD BP 113.5 cm??? 67 - 155 / 56 - 104 cm??? LV Systolic Volume MOD BP 47.3 cm??? 22 - 58 / 19 - 49 cm??? LV Ejection Fraction MOD BP 58.3 % >= 55 % LV Cardiac Index MOD BP 2289.2 cm???/min???m??? LV Diastolic Volume MOD 4C 101.4 cm??? LV Systolic Volume MOD 4C 38.0 cm??? LV Ejection Fraction MOD 4C 62.5 % LV Cardiac Index MOD 4C 2189.9 cm???/min???m??? LV Diastolic Length 4C 7.6 cm LV Systolic Length 4C 6.2 cm LV Diastolic Volume MOD 2C 112.0 cm??? LV Systolic Volume MOD 2C 49.0 cm??? LV Ejection Fraction MOD 2C 56.3 % LV Cardiac Index MOD 2C 2179.7 cm???/min???m??? LV Diastolic Length 2C 8.7 cm LV Systolic Length 2C 7.4 cm LA Volume 59.6 cm??? 18 - 58 / 22 - 52 cm??? LA Volume Index 29.9 cm???/m??? 16 - 28 cm???/m??? DOPPLER AV Peak Velocity 141.4 cm/s AV Peak Gradient 8.0 mmHg AV Mean Velocity 94.8 cm/s AV Mean Gradient 4.0 mmHg AV Velocity Time Integral 29.6 cm LVOT Peak Velocity 101.2 cm/s LVOT Peak Gradient 4.1 mmHg LVOT Velocity Time Integral 20.9 cm LVOT Stroke Volume 93.6 cm??? LVOT Stroke Volume Index 47.9 ml/m??? LVOT Cardiac Index 3237.3 cm???/min???m??? AV Area Cont Eq vti 3.2 cm??? AV Area Cont Eq pk 3.2 cm??? MV Area PHT 2.8 cm??? Mitral E Point Velocity 59.3 cm/s Mitral A Point Velocity 77.3 cm/s Mitral E to A Ratio 0.8 MV Deceleration Time 268.4 ms TR Peak Velocity 266.3 cm/s TR Peak Gradient 28.4 mmHg Right Atrial Pressure 5.0 mmHg Pulmonary Artery Systolic Pressu 33.4 mmHg Right Ventricular Systolic Press 33.4 mmHg PV Peak Velocity 90.4 cm/s PV Peak Gradient 3.3 mmHg FINDINGS Left Ventricle Left ventricular ejection fraction is estimated at 55-60 %. Left ventricular cavity size normal. Left ventricular wall thickness normal. No obvious regional wall motion abnormalities. Right Ventricle Normal right ventricular size and function. Right ventricular systolic pressure within normal limits. Right Atrium Normal right atrial size. Left Atrium Mildly increased left atrial volume. Probable PFO Mitral Valve Structurally normal mitral valve. No evidence for mitral valve prolapse. No mitral stenosis. [id number] mitral regurgitation. Mitral valve thickened. Aortic Valve Trileaflet aortic valve. No aortic stenosis. Mild to moderate aortic regurgitation. Tricuspid Valve Structurally normal tricuspid valve. No tricuspid stenosis. Mild tricuspid regurgitation. Pulmonic Valve Pulmonic valve not well visualized. No pulmonic stenosis. mild pulmonic regurgitation. Pericardium No pericardial effusion.echo free space anterior to the right ventricle likely represents a fat pad. Aorta Aortic annulus normal. Ascending aorta mildly enlarged. CONCLUSIONS 1. Normal left ventricular size and systolic function 2. Mild to moderate mitral and aortic regurgitation 3. Mild tricuspid regurgitation with no evidence of pulmonary hypertension 4. Cannot exclude a small PFO Previewed by: Dr. Augie Ngo MD (Electronically Signed) Final Date: 17 August 2024 13:11
--- NOTE | 2024-08-17 13:14 | CA ---
Exercise Nuclear Stress Test Report Name: Italo Rodriguez Exam Date: 08/17/2024 11:32 Exam Location: [place] Stress Ht (in): 68 Wt (lb): 180 BSA: 1.95 Ordering Phys: Lili Sorenson Referring Phys: MORIS Technologist: Austin Madsen Age: 68 Gender: M : 1955 Procedure CPT: Indications: Reflex order-Stress test ICD-10 Codes: Patient History: Medications: SEE CHART Meds past 24 hrs: Pretest Chest Pain: STRESS TEST Chuck Protocol Exercise Duration (min:sec): 06:[address] Depressions (mm): 0 Angina Score: 0 Cortez Score: 6 Resting HR (bpm): 84 Peak HR (bpm): 142 Resting BP (mmHg): 172 / 96 Peak BP (mmHg): 207 / 91 MPHR: 150 Target HR: 128 % MPHR: 95 METS: 7.1 Total Dose: Peak Dose: Atropine: Double Product: 34434 BP Response: Stress Termination: TARGET HR REACHED/MAX EXERTION Stress Symptoms: DIFFICULTY IN BREATHING Stress Summary: The patient's target heart rate was achieved, The hemodynamic response to exercise was normal ECG ANALYSIS Resting ECG: Sinus rhythm. Normal conduction. No arrhythmias. Normal repolarization. Stress ECG: No ECG evidence of ischemia with exercise. CONCLUSIONS Patient falls into low-risk group (DTS >= +5). This associates the patient with an annual CV mortality <= 0.5%. Average exercise tolerance with normal electrocardiographic response to exercise Nuclear images will be reported separately Dr. Augie Ngo MD (Electronically Signed) Final Date: 17 August 2024 13:13
--- NOTE | 2024-08-17 13:19 | NM ---
EXAMINATION TYPE: NM stress cardiolite complete DATE OF EXAM: 08/17/2024 COMPARISON: NONE CLINICAL INDICATION: Male, 68 years old with history of CP, TECHNIQUE: After the intravenous administration of 10.3 mCi Tc 99m Sestamibi - Cardiolite resting SP ECT images acquired 45 minutes post injection. At peak stress 26.2 mCi Tc 99m Sestamibi - Stress images obtained 20 minutes post injection The patient was stressed with 0.4mg Lexiscan. FINDINGS: No fixed defects are evident. No reversible perfusion defects are evident. Wall motion is n ormal Ejection fraction is calculated to be 54 %. IMPRESSION: 1. No stress-induced ischemic changes. [facility], , 08/17/2024 1:17 PM
[2024-08-17] MEDS: LOSARTAN 50 MG TAB PO SCH (13:23)
--- NOTE | 2024-08-17 13:42 | P.DS ---
Providers Date of admission: 08/16/24 13:53 Expected date of discharge: 08/17/24 Attending physician: Raina Morgan MD Consults: 08/16/24 13:53 Consult Physician Routine Consulting Provider: [facility] Consult Reason/Comments: chest pain, uncontrolled hypertension Do you want consulting provider notified?: Yes 08/16/24 15:10 Consult Physician Routine Consulting Provider: Leobardo Landis Consult Reason/Comments: carotid stenosis 70% right, 100% left Do you want consulting provider notified?: Yes Primary care physician: [facility] Hospital Course: Chest pain, musculoskeletal Carotid artery stenosis, total occlusion of the left, 70 percent on the right Hypertensive urgency Hyperlipidemia Diabetes type 2 68-year-old man with medical history of 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 In the ER, patient was afebrile, 158/93, heart rate 83, 98% on room air. CBC is unremarkable. Complete metabolic panel showed CO2 of 31, otherwise unremarkable. Troponin was less than 0.012 then trended to less than 0.012 hours. Urinalysis was negative for protein. EKG shows normal sinus rhythm with normal axis, no evidence of left ventricular hypertrophy, no evidence of ischemia. Chest x-ray shows normal- sized heart, no evidence of volume overload. Mediastinum is mildly widened. Case was discussed with the emergency room physician as well as vascular surgery on consult. Patient was admitted for observation for chest pain, hypertensive urgency. Patient was seen by vascular surgery as well as cardiology, started on losartan for blood pressure management. He also underwent stress echo, which was negative for reversible ischemia, therefore cleared for discharge. During hospitalization, patient also had further characterization of his carotid arteries, he has chronic total occlusion of the left carotid, approximately 50% stenosis of the right carotid. He should follow-up with vascular surgery on discharge as well as cardiology and PCP. I spent 32 minutes coordinating this discharge Gen: In NAD, non-toxic HEENT: normocephalic, atraumatic, hearing acuity is intant, mucous membranes moist, mild bruits present in the right carotid artery CVS: perfusing all extremities well, no pitting edema, regular rate rhythm with no evident murmurs, Respiratory: symmetric chest expansion, no accessory muscle use, clear to auscultation bilaterally GI: soft, NTTP, ND, : no suprapubic tenderness, no CVA tenderness MSK/Derm: no rashes, cyanosis, chest pain and left arm numbness is reproducible to palpation of the lateral flank Neuro: CN II-XII intact, no motor weakness, Psych: cooperative, euthymic mood, judgment and insight is intact Patient Condition at Discharge: Good Plan - Discharge Summary Discharge Rx Participant: Yes New Discharge Prescriptions: New Losartan [Cozaar] 50 mg PO DAILY #30 tab Atorvastatin [Lipitor] 40 mg PO HS #30 tab Aspirin 81 mg PO DAILY #30 tab Continue Cholecalciferol [Vitamin D3 (125 Mcg = 5000 Iu)] 125 mcg PO DAILY Methylsulfonylmethane [MSM] 2,000 mg PO DAILY Krill/[place]-3/Dha/Epa/Lipids [Krill Oil 350 mg Softgel] 1 cap PO BID Glucosam/Aakash-Msm1/C/Virgilio/Bosw [Glucosamine-Chondroitin Tablet] 1 tab PO DAILY Ascorbic Acid [Vitamin C] 500 mg PO DAILY Levothyroxine Sodium [Synthroid] 125 mcg PO DAILY Discontinued Pravastatin Sodium [Pravachol] 40 mg PO DAILY Discharge Medication List Ascorbic Acid [Vitamin C] 500 mg PO DAILY 08/16/24 [History] Cholecalciferol [Vitamin D3 (125 Mcg = 5000 Iu)] 125 mcg PO DAILY 08/16/24 [History] Glucosam/Aakash-Msm1/C/Virgilio/Bosw [Glucosamine-Chondroitin Tablet] 1 tab PO DAILY 08/16/24 [History] Krill/[place]-3/Dha/Epa/Lipids [Krill Oil 350 mg Softgel] 1 cap PO BID 08/16/24 [History] Levothyroxine Sodium [Synthroid] 125 mcg PO DAILY 08/16/24 [History] Methylsulfonylmethane [MSM] 2,000 mg PO DAILY 08/16/24 [History] Aspirin 81 mg PO DAILY #30 tab 08/17/24 [Rx] Atorvastatin [Lipitor] 40 mg PO HS #30 tab 08/17/24 [Rx] Losartan [Cozaar] 50 mg PO DAILY #30 tab 08/17/24 [Rx] Follow up Appointment(s)/Referral(s): Irwin,Comfort, DO [STAFF PHYSICIAN] - 4 Weeks [facility] [Primary Care Provider] - 1-2 days Discharge Disposition: HOME SELF-CARE
[2024-08-17] MEDS ORDERED: ATORVASTATIN 40 MG TAB PO SCH (21:00)
== END 2024-08-17 14:36 | disposition home or self-care (01) ==
LOC: EC 10:26 → 6NMEDSUR 13:53
PROVIDERS: ADMIT Student in an Organized Health Care Education/Training Program; ATTEND Student in an Organized Health Care Education/Training Program
DX: R07.89 Other chest pain (principal); I65.22 Occlusion and stenosis of left carotid artery; I16.1 Hypertensive emergency; I10 Essential (primary) hypertension; M79.602 Pain in left arm; E89.0 Postprocedural hypothyroidism; I25.10 Atherosclerotic heart disease of native coronary artery without angina pectoris; E78.5 Hyperlipidemia, unspecified; E11.9 Type 2 diabetes mellitus without complications; Z86.19 Personal history of other infectious and parasitic diseases; Z87.891 Personal history of nicotine dependence; Z79.82 Long term (current) use of aspirin; Z79.84 Long term (current) use of oral hypoglycemic drugs; Z79.890 Hormone replacement therapy; Z79.899 Other long term (current) drug therapy
CPT/HCPCS: 96376; 96374; 99285; 36415; 94760; 93005; 93017; 93306; 80061; 80053 ×2; 84443; 83735 ×2; 84484; 85025 ×2; 85610; 85730; 81003; 83036; 71045; 93975; 93880; 70496; 70498; 78452; G0378 ×2; A9500; J0360; Q9967